=== PATIENT | male | born 2000 | race Caucasian/White ===

== ENCOUNTER 2024-05-12 14:17 | Inpatient (IN) | payer OTHER ==
[~2024-05-12] VITALS: Ht 182.9 cm; Wt 68.2 kg
[2024-05-12 15:34] LABS: HEMATOCRIT 43.4 % (42.0-52.0); MEAN CORPUSCULAR HEMOGLOBIN 32.3 pg (27.0-33.0); MEAN CORPUSCULAR HGB CONC 34.6 g/dl (32.0-36.5); MEAN CORPUSCULAR VOLUME 93.3 fl (80.0-96.0); PLATELET COUNT, AUTOMATED 264 10^3/uL (150-450); RED BLOOD COUNT 4.65 10^6/uL (4.30-6.10); WHITE BLOOD COUNT 6.2 10^3/uL (4.0-10.0)
[2024-05-12 16:02] LABS: AMPHETAMINES LEVEL URINE NEGATIVE (NEGATIVE); BARBITURATES URINE NEGATIVE (NEGATIVE); BENZODIAZEPINES URINE NEGATIVE (NEGATIVE); CANNABINOIDS URINE NEGATIVE (NEGATIVE); COCAINE METABOLITE URINE NEGATIVE (NEGATIVE); METHADONE URINE NEGATIVE (NEGATIVE); OPIATES URINE NEGATIVE (NEGATIVE); PHENCYCLIDINE URINE NEGATIVE (NEGATIVE)
[2024-05-12 16:49] LABS: ETHYL ALCOHOL (ETHANOL) < 0.003 % (0.000-0.010)
[2024-05-12 16:50] LABS: SALICYLATE LEVEL < 3.0 MG/DL (<30)
[2024-05-12 16:51] LABS: ALBUMIN 4.5 G/DL (3.2-5.2); ALKALINE PHOSPHATASE 59 U/L (46-116); ALT/SGPT 11 U/L (7.0-40); AST/SGOT 14 U/L (<34); BILIRUBIN,DIRECT 0.4 MG/DL (<0.4); BILIRUBIN,TOTAL 1.1 MG/DL (0.3-1.2); BLOOD UREA NITROGEN 11 MG/DL (9-23); CALCIUM LEVEL 9.7 MG/DL (8.5-10.1); CARBON DIOXIDE LEVEL 27 MMOL/L (20-31); CHLORIDE LEVEL 107 MMOL/L (98-107); CREATININE FOR GFR 0.88 MG/DL (0.70-1.30); GLOMERULAR FILTRATION RATE > 60.0 (>60); GLUCOSE, FASTING 128 MG/DL (60-100); POTASSIUM SERUM 4.4 MMOL/L (3.5-5.1); SODIUM LEVEL 140 MMOL/L (136-145); TOTAL PROTEIN 7.8 G/DL (5.7-8.2)
[2024-05-12 16:54] LABS: THYROID STIMULATING HORMONE 1.404 uIU/ML (0.55-4.78)
[2024-05-12] MEDS ORDERED: HOME MED LIST COMPLETE! XX SCH (17:25)
[2024-05-12] MEDS ORDERED: MAALOX 30 ML SUSP *UDC PO PRN (18:15)
[2024-05-12] MEDS ORDERED: IBUPROFEN 400MG TAB PO PRN (18:15)
[2024-05-12] MEDS ORDERED: diphenhydrAMINE 25MG CAP PO PRN (18:15)
[2024-05-12] MEDS ORDERED: MOM 30ML SUSPENSION UDC PO PRN (18:15)
[2024-05-12] MEDS ORDERED: traZODone 50 MG TAB PO PRN (18:15)
[2024-05-12] MEDS ORDERED: ACETAMINOPHEN 325 MG TAB PO PRN (18:15)
[2024-05-12] MEDS ORDERED: LORazepam 2 MG TAB PO PRN (18:15)
[2024-05-12] MEDS: THIAMINE 100 MG TAB PO SCH (20:06)
[2024-05-12] MEDS: NICOTINE 21MG/24HR 1 EA TRANSDERMAL TD PRN (20:07)
[2024-05-13 06:18] VITALS: BP 132/60; TEMP 97.4; O2SAT 100
[2024-05-13] MEDS ORDERED: PROZ10CA7 PO (09:27)
[2024-05-13] MEDS: FLUoxetine 10 MG CAP PO SCH (09:32)
[2024-05-13] MEDS: FOLIC ACID 1MG TAB PO SCH (09:32)
[2024-05-13] MEDS: MULTIVITAMINS/MINERALS THERAP 1 TAB PO SCH (09:32)
== END 2024-05-13 11:56 | disposition home or self-care (01) | DRG 881 ==
LOC: M ED 14:17 → EDBD 14:17 → M ED INP 18:15 → M PSY 22:35
PROVIDERS: ADMIT Psychiatry & Neurology Psychiatry; ATTEND Psychiatry & Neurology Psychiatry
DX: F32.A Depression, unspecified (principal); R45.851 Suicidal ideations; R48.0 Dyslexia and alexia; F17.200 Nicotine dependence, unspecified, uncomplicated; Z81.8 Family history of other mental and behavioral disorders